=== PATIENT | male | born 1950 | race Hispanic/Latino ===

== ENCOUNTER 2017-07-28 12:51 | Outpatient (CLI) | payer MEDICARE, BC ==
--- NOTE | 2017-07-28 15:08 | CT ---
CT HEAD WITHOUT CONTRAST: Technique: Multiple axial tomograms were obtained through the head without IV enhancement. History: Follow up hemangioma excision. Excision was three years ago. Comparison: 04-22-17 FINDINGS: Craniotomy defect on the left again noted. There is encephalomalacia at the operative site involving the left temporal lobe which appears stable. Ventricles have normal size and position. No hemorrhage, mass, or infarct. No significant interval change. IMPRESSION: Stable CT head findings. POS: [facility]
== END 2017-07-28 12:52 | disposition home or self-care (01) ==
LOC: TBSIIMAG 12:51
PROVIDERS: ATTEND Surgery
DX: D32.0 Benign neoplasm of cerebral meninges (principal)
CPT/HCPCS: 70450

== ENCOUNTER 2017-10-09 12:48 | Emergency (ER) | payer MEDICARE, BC ==
[2017-10-09 13:35] LABS: #Basophils 0.1 thou/uL (0.0-0.2); #Eosinphils 0.4 thou/uL (0.0-0.7); #Monocytes 0.9 thou/uL (0.11-0.59); #Neutrophils 6.8 thou/uL (1.40-6.50); %Basophils 0.7 % (0.0-1.0); %Eosinophils 3.6 % (0.0-10.0); %Lymphocytes 19.4 % (21.0-51.0); %Monocytes 9.2 % (0.0-10.0); %Neutrophils 67.1 % (42.0-75.0); Hemoglobin 12.5 g/dL (14.0-18.0); Mean Corpuscular HGB CONC 34.2 g/dL (32.0-36.0); Mean Corpuscular Hemoglobin 29.6 pg (27.0-31.0); Mean Corpuscular Volume 86.5 fl (80.0-94.0); Mean Platelet Volume 8.6 fL (7.4-10.4); Platelet Count 352 thou/uL (130-400); RBC Distribution Width 12.7 % (11.5-14.5); Red Blood Cell (RBC) Count 4.21 mill/uL (4.70-6.10); White Blood Cell (WBC) Count 10.2 thou/uL (4.8-10.8)
[2017-10-09 13:55] LABS: ALT (SGPT) 19 U/L (8-55); AST (SGOT) 15 U/L (5-34); Albumin 4.4 g/dL (3.4-4.8); Alkaline Phosphatase 78 U/L (40-150); Anion Gap 13 mmol/L (10-20); BUN (Urea Nitrogen) 36 mg/dL (8.4-25.7); Bilirubin, Total 0.5 mg/dL (0.2-1.2); Calc. Creatinine Clearance 0 mL/min (70-130); Carbon Dioxide 23 mmol/L (23-31); Chloride 106 mmol/L (98-107); Estimated GFR-MDRD 38; Globulin 3.7 g/dL (2.4-3.5); Glucose 158 mg/dL (80-115); Potassium 4.9 mmol/L (3.5-5.1); Protein, Total 8.1 g/dL (5.8-8.1); Sodium 137 mmol/L (136-145)
[2017-10-09] MEDS ORDERED: Famotidine/PF 20 mg/2ml Vial ONE (14:04)
[2017-10-09] MEDS ORDERED: Lidocaine Viscous Sol 2% 15 ml UD Cup ONE (14:04)
[2017-10-09] MEDS ORDERED: Mag-Al 1200 mg/1200 mg/30 ML UDCUP ONE (14:04)
[2017-10-09 14:20] LABS: Troponin I 0.018 ng/mL (< 0.028)
== END 2017-10-09 16:13 | disposition home or self-care (01) ==
LOC: ERS 12:48
DX: K29.70 Gastritis, unspecified, without bleeding (principal); E78.5 Hyperlipidemia, unspecified; E11.9 Type 2 diabetes mellitus without complications; K21.9 Gastro-esophageal reflux disease without esophagitis; I10 Essential (primary) hypertension; Z87.891 Personal history of nicotine dependence; Z79.4 Long term (current) use of insulin
CPT/HCPCS: 80053; 84484; 85025; 93005; 96374; S0028

== ENCOUNTER 2018-03-09 10:47 | Emergency (ER) | payer BC, MEDICARE, SELFPAY ==
[2018-03-09 11:28] LABS: #Basophils 0.1 thou/uL (0.0-0.2); #Eosinphils 0.3 thou/uL (0.0-0.7); #Lymphocytes 1.7 thou/uL (1.20-3.40); #Monocytes 0.7 thou/uL (0.11-0.59); #Neutrophils 4.7 thou/uL (1.40-6.50); %Basophils 0.9 % (0.0-1.0); %Eosinophils 4.2 % (0.0-10.0); %Lymphocytes 23.1 % (21.0-51.0); %Monocytes 9.2 % (0.0-10.0); %Neutrophils 62.7 % (42.0-75.0); Hemoglobin 12.9 g/dL (14.0-18.0); Mean Corpuscular HGB CONC 34.8 g/dL (32.0-36.0); Mean Corpuscular Hemoglobin 29.9 pg (27.0-31.0); Mean Platelet Volume 8.7 fL (7.4-10.4); Platelet Count 264 thou/uL (130-400); RBC Distribution Width 12.5 % (11.5-14.5); Red Blood Cell (RBC) Count 4.33 mill/uL (4.70-6.10); White Blood Cell (WBC) Count 7.6 thou/uL (4.8-10.8)
[2018-03-09 11:43] LABS: ALT (SGPT) 28 U/L (8-55); AST (SGOT) 18 U/L (5-34); Albumin 4.5 g/dL (3.4-4.8); Alkaline Phosphatase 72 U/L (40-150); Anion Gap 16 mmol/L (10-20); BUN (Urea Nitrogen) 28 mg/dL (8.4-25.7); Bilirubin, Total 0.5 mg/dL (0.2-1.2); Calc. Creatinine Clearance 0 mL/min (70-130); Calcium 9.4 mg/dL (7.8-10.44); Carbon Dioxide 18 mmol/L (23-31); Chloride 106 mmol/L (98-107); Estimated GFR-MDRD 35; Globulin 3.4 g/dL (2.4-3.5); Glucose 252 mg/dL (80-115); Potassium 4.7 mmol/L (3.5-5.1); Protein, Total 7.9 g/dL (5.8-8.1); Sodium 135 mmol/L (136-145)
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
[2018-03-09] MEDS ORDERED: Bacitracin Zinc 1 Packet ONE (13:42)
[2018-03-09] MEDS ORDERED: ISOVUE-370 76%-LOCM 1 ML ONE (14:40)
== END 2018-03-09 13:57 | disposition home or self-care (01) ==
LOC: ERS 10:47
DX: S16.1XXA Strain of muscle, fascia and tendon at neck level, initial encounter (principal); M54.5 Low back pain; E11.9 Type 2 diabetes mellitus without complications; I10 Essential (primary) hypertension; Z79.4 Long term (current) use of insulin; Z87.891 Personal history of nicotine dependence; V43.52XA Car driver injured in collision with other type car in traffic accident, initial encounter
CPT/HCPCS: 70450; 71260; 72125; 74177; 80053; 85025; 96360

== ENCOUNTER 2018-09-17 10:00 | Emergency (ER) | payer MEDICARE, BC ==
--- NOTE | 2018-09-17 10:57 | RAD ---
KUB AND UPRIGHT AND PA CHEST: Date: 09/17/18 HISTORY: Epigastric pain. FINDINGS: The bowel gas pattern appears nonobstructed. No free air. No radiopaque calculi are identified. Vascu lar calcifications are seen. There is moderate arthritic change of the spine. Heart size and mediastinum are within normal limits. Lungs are clear of infiltrates. IMPRESSION: No acute findings. POS: [facility]
[2018-09-17 11:16] LABS: #Basophils 0.1 thou/uL (0.0-0.2); #Eosinphils 0.4 thou/uL (0.0-0.7); #Lymphocytes 1.9 thou/uL (1.20-3.40); #Monocytes 0.7 thou/uL (0.11-0.59); #Neutrophils 4.2 thou/uL (1.40-6.50); %Eosinophils 5.9 % (0.0-10.0); %Lymphocytes 25.5 % (21.0-51.0); %Monocytes 9.7 % (0.0-10.0); Hemoglobin 12.7 g/dL (14.0-18.0); Mean Corpuscular HGB CONC 33.6 g/dL (32.0-36.0); Mean Corpuscular Hemoglobin 29.2 pg (27.0-31.0); Mean Platelet Volume 9.4 fL (7.4-10.4); Platelet Count 276 thou/uL (130-400); RBC Distribution Width 12.2 % (11.5-14.5); Red Blood Cell (RBC) Count 4.36 mill/uL (4.70-6.10); White Blood Cell (WBC) Count 7.3 thou/uL (4.8-10.8)
[2018-09-17 11:17] LABS: ALT (SGPT) 24 U/L (8-55); AST (SGOT) 14 U/L (5-34); Albumin 4.5 g/dL (3.4-4.8); Alkaline Phosphatase 125 U/L (40-150); Anion Gap 16 mmol/L (10-20); BUN (Urea Nitrogen) 27 mg/dL (8.4-25.7); Bilirubin, Total 0.3 mg/dL (0.2-1.2); Calc. Creatinine Clearance 0 mL/min (70-130); Carbon Dioxide 21 mmol/L (23-31); Chloride 104 mmol/L (98-107); Estimated GFR-MDRD 44; Globulin 3.9 g/dL (2.4-3.5); Glucose 304 mg/dL (80-115); Lipase 35 U/L (8-78); Potassium 4.6 mmol/L (3.5-5.1); Protein, Total 8.4 g/dL (5.8-8.1); Sodium 136 mmol/L (136-145)
[2018-09-17] MEDS ORDERED: Lisinopril 10 MG TAB ONE (11:21)
== END 2018-09-17 12:23 | disposition home or self-care (01) ==
LOC: ERS 10:00
DX: R10.13 Epigastric pain (principal); F17.210 Nicotine dependence, cigarettes, uncomplicated; K21.9 Gastro-esophageal reflux disease without esophagitis; Z79.4 Long term (current) use of insulin
CPT/HCPCS: 36415; 74022; 80053; 83690; 85025; 93005

== ENCOUNTER 2021-09-29 12:00 | Observation (INO) | payer MEDICARE, OTHER, SELFPAY ==
[2021-09-29] MEDS ORDERED: Aspirin Chewable 81 MG TAB ONE (12:36)
[2021-09-29 13:09] LABS: #Eosinphils 0.4 thou/uL (0.0-0.7); #Lymphocytes 1.6 thou/uL (1.20-3.40); #Monocytes 0.7 thou/uL (0.11-0.59); #Neutrophils 3.8 thou/uL (1.40-6.50); %Basophils 0.8 % (0.0-1.0); %Eosinophils 6.3 % (0.0-10.0); %Monocytes 10.1 % (0.0-10.0); %Neutrophils 57.8 % (42.0-75.0); Hemoglobin 13.2 g/dL (14.0-18.0); Mean Corpuscular HGB CONC 34.5 g/dL (32.0-36.0); Platelet Count 248 thou/uL (130-400); RBC Distribution Width 12.6 % (11.5-14.5); Red Blood Cell (RBC) Count 4.41 mill/uL (4.70-6.10); White Blood Cell (WBC) Count 6.5 thou/uL (4.8-10.8)
[2021-09-29 13:25] LABS: ALT (SGPT) 31 U/L (8-55); AST (SGOT) 19 U/L (5-34); Albumin 4.1 g/dL (3.4-4.8); Alkaline Phosphatase 136 U/L (40-110); Anion Gap 18 mmol/L (10-20); BUN (Urea Nitrogen) 33 mg/dL (8.4-25.7); Bilirubin, Total 0.4 mg/dL (0.2-1.2); Calc. Creatinine Clearance 0 mL/min (70-130); Calcium 9.3 mg/dL (7.8-10.44); Carbon Dioxide 21 mmol/L (23-31); Chloride 100 mmol/L (98-107); Globulin 4.4 g/dL (2.4-3.5); Glucose 354 mg/dL (80-115); Potassium 5.2 mmol/L (3.5-5.1); Protein, Total 8.5 g/dL (5.8-8.1); Sodium 134 mmol/L (136-145)
[2021-09-29] MEDS ORDERED: Lisinopril 10 MG TAB ONE (14:09)
[2021-09-29] MEDS ORDERED: Nitroglycerin 0.4 MG TAB 1 EACH ONE ×2 (14:09→14:10)
[2021-09-29] MEDS ORDERED: Nitroglycerin 0.4 MG TAB (25 Tab Bottle) SL PRN (14:33)
[2021-09-29] MEDS ORDERED: Dextrose 5% in Water 1,000 ML IV PRN (14:36)
[2021-09-29] MEDS ORDERED: Dextrose 50% Abboject 50 ML SYRINGE SLOW IVP PRN (14:36)
[2021-09-29 15:38] VITALS: BMI 33.5
[2021-09-29 16:58] LABS: Troponin I 0.014 ng/mL (< 0.028)
[2021-09-29] MEDS: Carvedilol 6.25 MG TAB PO SCH (17:05)
[2021-09-29] MEDS: Insulin Regular 300 UNITS/3 ML VIAL SC PRN (17:05)
[2021-09-29] MEDS: hydrALAZINE 20 MG/ML VIAL SLOW IVP PRN (17:06)
[2021-09-29 19:25] LABS: Troponin I 0.022 ng/mL (< 0.028)
[2021-09-29] MEDS ORDERED: Sodium Chloride 0.9% 10 ML ONE (20:46)
[2021-09-29] MEDS: Atorvastatin Calcium 10 MG TAB PO SCH (20:56)
[2021-09-29] MEDS: Lantus 1000 UNITS/10 ML VIAL SC SCH (20:57)
[2021-09-29 21:27] LABS: SARS-CoV-2 PCR by NAA Not Detected (NotDetected)
[2021-09-30 04:22] LABS: Hemoglobin A1c 12.1 % (4.0-6.0)
[2021-09-30 04:27] LABS: #Basophils 0.1 thou/uL (0.0-0.2); #Eosinphils 0.5 thou/uL (0.0-0.7); #Monocytes 0.7 thou/uL (0.11-0.59); #Neutrophils 4.1 thou/uL (1.40-6.50); %Basophils 0.9 % (0.0-1.0); %Eosinophils 6.6 % (0.0-10.0); %Lymphocytes 26.9 % (21.0-51.0); %Monocytes 9.3 % (0.0-10.0); %Neutrophils 56.3 % (42.0-75.0); Hemoglobin 11.7 g/dL (14.0-18.0); Mean Corpuscular HGB CONC 34.2 g/dL (32.0-36.0); Mean Corpuscular Hemoglobin 30.1 pg (27.0-31.0); Mean Corpuscular Volume 88.1 fL (78.0-98.0); Mean Platelet Volume 9.7 fL (7.4-10.4); Platelet Count 224 thou/uL (130-400); RBC Distribution Width 12.8 % (11.5-14.5); Red Blood Cell (RBC) Count 3.88 mill/uL (4.70-6.10); White Blood Cell (WBC) Count 7.3 thou/uL (4.8-10.8)
[2021-09-30 04:50] LABS: Anion Gap 6 mmol/L (10-20); BUN (Urea Nitrogen) 30 mg/dL (8.4-25.7); Calc. Creatinine Clearance 52 mL/min (70-130); Calcium 8.6 mg/dL (7.8-10.44); Carbon Dioxide 28 mmol/L (23-31); Cardiac Risk 9.7 (Less than 4.5); Chloride 105 mmol/L (98-107); Cholesterol 252 mg/dl (< 200 Desired); Glucose 314 mg/dL (80-115); HDL Cholesterol 26 mg/dL (>60 Neg Risk); Potassium 5.1 mmol/L (3.5-5.1); Sodium 134 mmol/L (136-145)
[2021-09-30 05:00] LABS: Triglycerides 1057 mg/dL (Less than 150)
[2021-09-30] MEDS: Enoxaparin Sodium 40 MG/0.4 ML SYRINGE SC SCH (07:54)
[2021-09-30] MEDS: Aspirin 325 MG TAB PO SCH (07:54)
[2021-09-30] MEDS ORDERED: Carvedilol 6.25 MG TAB PO SCH (09:00)
[2021-09-30] MEDS ORDERED: ADENOSINE 60 MG/20 ML VIAL ONE (09:06)
[2021-09-30] MEDS: Carvedilol 6.25 MG TAB PO SCH ×2 (10:43→16:27)
[2021-09-30] MEDS: Insulin Regular 300 UNITS/3 ML VIAL SC PRN ×2 (12:04→17:36)
[2021-09-30] MEDS: hydrALAZINE 20 MG/ML VIAL SLOW IVP PRN ×2 (12:08→17:36)
[2021-09-30] MEDS ORDERED: Lisinopril 20 MG TAB PO SCH (17:45)
[2021-09-30] MEDS ORDERED: Sodium Chloride 0.9% 10 ML ONE (20:42)
[2021-09-30] MEDS: hydrALAZINE 25 MG TAB PO SCH (21:13)
[2021-09-30] MEDS: Lantus 1000 UNITS/10 ML VIAL SC SCH (21:14)
[2021-09-30] MEDS: Atorvastatin Calcium 10 MG TAB PO SCH (21:14)
[2021-10-01 05:17] LABS: Anion Gap 19 mmol/L (10-20); BUN (Urea Nitrogen) 28 mg/dL (8.4-25.7); Calc. Creatinine Clearance 53 mL/min (70-130); Calcium 8.9 mg/dL (7.8-10.44); Carbon Dioxide 16 mmol/L (23-31); Chloride 104 mmol/L (98-107); Glucose 264 mg/dL (80-115); Potassium 4.9 mmol/L (3.5-5.1); Sodium 134 mmol/L (136-145)
[2021-10-01] MEDS: Insulin Regular 300 UNITS/3 ML VIAL SC PRN (06:15)
[2021-10-01] MEDS ORDERED: HumaLOG 300 UNITS/3 ML VIAL SC PRN ×2 (07:38)
[2021-10-01] MEDS ORDERED: Senokot S 8.6-50 MG TAB PO PRN (07:40)
[2021-10-01] MEDS ORDERED: GUAIFENESIN SF SOLN 200 MG/10 ML UDCUP PO PRN (07:40)
[2021-10-01] MEDS ORDERED: Loperamide HCl 2 MG CAP PO PRN (07:40)
[2021-10-01] MEDS ORDERED: Ondansetron PF 4 MG/2 ML Vial IVP PRN (07:40)
[2021-10-01] MEDS ORDERED: HYDROcodone/Acetaminophen 5/325 mg Tablet PO PRN (07:40)
[2021-10-01] MEDS ORDERED: Sodium Chloride 0.65% Nasal 44 ML BOT EA NARE PRN (07:40)
[2021-10-01] MEDS ORDERED: Carvedilol 6.25 MG TAB PO SCH (08:00)
[2021-10-01 08:13] VITALS: TEMP 97.8
[2021-10-01 08:49] LABS: Hemoglobin A1c 11.9 % (4.0-6.0)
[2021-10-01] MEDS ORDERED: Fenofibrate 48 MG TAB PO SCH (09:00)
[2021-10-01] MEDS ORDERED: Lisinopril 20 MG TAB PO SCH (09:00)
[2021-10-01 09:08] VITALS: BP 140/63
[2021-10-01] MEDS: Carvedilol 6.25 MG TAB PO SCH (09:08)
[2021-10-01] MEDS: Aspirin 325 MG TAB PO SCH (09:10)
[2021-10-01] MEDS: Enoxaparin Sodium 40 MG/0.4 ML SYRINGE SC SCH (09:10)
[2021-10-01] MEDS: hydrALAZINE 25 MG TAB PO SCH (09:12)
[2021-10-01] MEDS ORDERED: Lantus 1000 UNITS/10 ML VIAL SC SCH (21:00)
== END 2021-10-01 10:08 | disposition home or self-care (01) ==
LOC: ERS 12:00 → 2NO 14:35
PROVIDERS: ADMIT Hospitalist; ATTEND Internal Medicine
DX: R07.89 Other chest pain (principal); E87.5 Hyperkalemia; I13.10 Hypertensive heart and chronic kidney disease without heart failure, with stage 1 through stage 4 chronic kidney disease, or unspecified chronic kidney disease; E11.22 Type 2 diabetes mellitus with diabetic chronic kidney disease; N18.30 Chronic kidney disease, stage 3 unspecified; N17.9 Acute kidney failure, unspecified; E78.5 Hyperlipidemia, unspecified; I08.3 Combined rheumatic disorders of mitral, aortic and tricuspid valves; M79.604 Pain in right leg; M79.605 Pain in left leg; E11.65 Type 2 diabetes mellitus with hyperglycemia; E66.9 Obesity, unspecified; Z68.33 Body mass index [BMI] 33.0-33.9, adult; Z87.891 Personal history of nicotine dependence; Z79.4 Long term (current) use of insulin; Z79.899 Other long term (current) drug therapy; Z98.890 Other specified postprocedural states; Z20.822 Contact with and (suspected) exposure to COVID-19
CPT/HCPCS: 71045; 78452; 80048 ×2; 80053; 80061; 82962 ×3; 83036; 84443 ×2; 84484 ×2; 85025 ×2; 85379; 93005; 93017; 93306; 93970; 99285; A9500; U0003; U0005; 36415; 36416; 96372; 96374; 96376; G0378; J0153; J0360; J1650; J1815

== ENCOUNTER 2022-12-11 18:06 | Inpatient (IN) | payer MEDICARE, OTHER ==
[2022-12-11 19:37] LABS: #Basophils 0.1 thou/uL (0.0-0.2); #Eosinphils 0.7 thou/uL (0.0-0.7); #Lymphocytes 2.2 thou/uL (1.20-3.40); #Neutrophils 5.5 thou/uL (1.40-6.50); %Basophils 0.7 % (0.0-1.0); %Eosinophils 7.8 % (0.0-10.0); %Lymphocytes 23.3 % (21.0-51.0); %Monocytes 10.2 % (0.0-10.0); Hemoglobin 12.5 g/dL (14.0-18.0); Mean Corpuscular HGB CONC 35.6 g/dL (32.0-36.0); Mean Corpuscular Hemoglobin 31.4 pg (27.0-31.0); Mean Platelet Volume 9.4 fL (7.4-10.4); Platelet Count 227 10x3/uL (130-400); RBC Distribution Width 13.1 % (11.5-14.5); Red Blood Cell (RBC) Count 3.97 mill/uL (4.70-6.10); White Blood Cell (WBC) Count 9.4 10x3/uL (4.8-10.8)
[2022-12-11 19:59] LABS: ALT (SGPT) 26 U/L (8-55); AST (SGOT) 23 U/L (5-34); Albumin 4.1 g/dL (3.4-4.8); Alkaline Phosphatase 127 U/L (40-110); Anion Gap 17 mmol/L (10-20); BUN (Urea Nitrogen) 53 mg/dL (8.4-25.7); Bilirubin, Total 0.5 mg/dL (0.2-1.2); Calc. Creatinine Clearance 0 mL/min (70-130); Calcium 9.3 mg/dL (7.8-10.44); Carbon Dioxide 18 mmol/L (23-31); Chloride 108 mmol/L (98-107); Estimated GFR 21; Globulin 3.8 g/dL (2.4-3.5); Glucose 149 mg/dL (80-115); Lipase 270 U/L (8-78); Potassium 5.7 mmol/L (3.5-5.1); Protein, Total 7.9 g/dL (5.8-8.1); Sodium 137 mmol/L (136-145)
[2022-12-11 20:10] LABS: Bacteria/HPF None Seen HPF (None Seen); Bilirubin Negative (Negative); Blood, Urine 1+ (Negative); Clarity Clear (Clear); Glucose, Urine (Dipstick) 50 mg/dL (Negative); Ketone, Urine Negative (Negative); Leukocyte Negative Leu/uL (Negative); Nitrite Negative (Negative); Protein, Urine (Dipstick) 300 mg/dL (Neg-Trace); RBC/HPF 0-3 HPF (0-3); Specific Gravity, Urine 1.019 (1.002-1.036); Squamous Epithelial 0-3 HPF (0-3); Urobilinogen Normal mg/dL (Less than 2); WBC/HPF 0-3 HPF (0-3); pH, Urine 5.5 (5.0-9.0)
[2022-12-11] MEDS ORDERED: Ondansetron PF 4 MG/2 ML Vial IVP PRN (21:11)
[2022-12-11] MEDS ORDERED: Dextrose 5% in Water 1,000 ML IV PRN (21:13)
[2022-12-11] MEDS ORDERED: Dextrose 50% Abboject 50 ML SYRINGE SLOW IVP PRN (21:13)
[2022-12-11] MEDS: hydrALAZINE 20 MG/ML VIAL SLOW IVP PRN (22:31)
[2022-12-11] MEDS: Sodium Chloride 0.9% 1,000 ML IV SCH (22:31)
[2022-12-11 22:40] VITALS: BMI 32.9
[2022-12-12] MEDS: Sodium Chloride 0.9% 1,000 ML IV SCH ×4 (02:46→23:24)
[2022-12-12 07:05] LABS: #Basophils 0.1 thou/uL (0.0-0.2); #Eosinphils 0.6 thou/uL (0.0-0.7); #Lymphocytes 2.1 thou/uL (1.20-3.40); #Monocytes 0.9 thou/uL (0.11-0.59); %Basophils 0.6 % (0.0-1.0); %Eosinophils 6.8 % (0.0-10.0); %Lymphocytes 24.4 % (21.0-51.0); %Monocytes 10.2 % (0.0-10.0); Hemoglobin 11.3 g/dL (14.0-18.0); Mean Corpuscular HGB CONC 33.9 g/dL (32.0-36.0); Mean Corpuscular Hemoglobin 30.1 pg (27.0-31.0); Mean Corpuscular Volume 88.8 fl (78.0-98.0); Mean Platelet Volume 9.2 fL (7.4-10.4); Platelet Count 216 10x3/uL (130-400); RBC Distribution Width 13.1 % (11.5-14.5); Red Blood Cell (RBC) Count 3.75 mill/uL (4.70-6.10); White Blood Cell (WBC) Count 8.7 10x3/uL (4.8-10.8)
[2022-12-12 07:28] LABS: ALT (SGPT) 22 U/L (8-55); AST (SGOT) 16 U/L (5-34); Albumin 3.6 g/dL (3.4-4.8); Alkaline Phosphatase 112 U/L (40-110); Anion Gap 13 mmol/L (10-20); BUN (Urea Nitrogen) 46 mg/dL (8.4-25.7); Bilirubin, Total 0.5 mg/dL (0.2-1.2); Calc. Creatinine Clearance 32 mL/min (70-130); Calcium 8.5 mg/dL (7.8-10.44); Carbon Dioxide 17 mmol/L (23-31); Chloride 113 mmol/L (98-107); Estimated GFR 25; Globulin 3.3 g/dL (2.4-3.5); Glucose 132 mg/dL (80-115); Magnesium 1.6 mg/dL (1.6-2.6); Phosphorus 3.2 mg/dL (2.3-4.7); Potassium 4.9 mmol/L (3.5-5.1); Protein, Total 6.9 g/dL (5.8-8.1); Sodium 138 mmol/L (136-145)
[2022-12-12] MEDS: Fenofibrate 48 MG TAB PO SCH (08:40)
[2022-12-12] MEDS: Carvedilol 25 MG TAB PO SCH ×4 (08:41→21:11)
[2022-12-12] MEDS: Heparin 5,000 UNITS/ML VIAL SC SCH ×3 (08:44→21:10)
[2022-12-12] MEDS ORDERED: Simvastatin 20 MG TAB PO SCH (09:00)
[2022-12-12] MEDS: HumaLOG 300 UNITS/3 ML VIAL SC PRN ×3 (12:55→22:16)
[2022-12-12] MEDS: hydrALAZINE 20 MG/ML VIAL SLOW IVP PRN (12:55)
[2022-12-12] MEDS ORDERED: hydrALAZINE 10 MG TAB PO SCH (16:00)
[2022-12-12] MEDS ORDERED: Atorvastatin Calcium 10 MG TAB PO SCH (21:00)
[2022-12-12] MEDS ORDERED: hydrALAZINE 25 MG TAB PO SCH (21:00)
[2022-12-13] MEDS: hydrALAZINE 20 MG/ML VIAL SLOW IVP PRN (04:00)
[2022-12-13] MEDS: Sodium Chloride 0.9% 1,000 ML IV SCH (05:23)
[2022-12-13] MEDS: HumaLOG 300 UNITS/3 ML VIAL SC PRN (06:21)
[2022-12-13] MEDS: Fenofibrate 48 MG TAB PO SCH (08:55)
[2022-12-13] MEDS: Carvedilol 25 MG TAB PO SCH ×2 (08:55→08:57)
[2022-12-13] MEDS: Heparin 5,000 UNITS/ML VIAL SC SCH (08:57)
[2022-12-13] MEDS ORDERED: Sodium Chloride 0.9% 1,000 ML IV SCH (09:09)
[2022-12-13] MEDS ORDERED: hydrALAZINE 25 MG TAB PO SCH ×2 (09:15→15:00)
[2022-12-13 10:18] LABS: Anion Gap 14 mmol/L (10-20); BUN (Urea Nitrogen) 30 mg/dL (8.4-25.7); Calc. Creatinine Clearance 42 mL/min (70-130); Calcium 8.3 mg/dL (7.8-10.44); Carbon Dioxide 18 mmol/L (23-31); Chloride 112 mmol/L (98-107); Estimated GFR 34; Glucose 208 mg/dL (80-115); Potassium 4.6 mmol/L (3.5-5.1); Sodium 139 mmol/L (136-145)
[2022-12-13 12:14] VITALS: TEMP 98
[2022-12-13 13:53] VITALS: BP 162/88
== END 2022-12-13 13:53 | disposition home or self-care (01) | DRG 641 ==
LOC: SUATTDRO 18:06 → ERS 18:06 → SJJU 20:52
PROVIDERS: ADMIT Family Medicine; ATTEND Internal Medicine
DX: E87.5 Hyperkalemia (principal); N17.9 Acute kidney failure, unspecified; E86.0 Dehydration; E78.5 Hyperlipidemia, unspecified; E78.00 Pure hypercholesterolemia, unspecified; E11.9 Type 2 diabetes mellitus without complications; K21.9 Gastro-esophageal reflux disease without esophagitis; I10 Essential (primary) hypertension; Z98.890 Other specified postprocedural states; Z87.891 Personal history of nicotine dependence; Z79.4 Long term (current) use of insulin; Z79.899 Other long term (current) drug therapy
CPT/HCPCS: 36415; 36416; 80048; 80053; 81003; 81015; 82274; 83630; 83690; 83735; 84100; 85025; 87324; 87449; 99284; J0360; J1644; J1815; J7050